=== PATIENT | male | born 1950 ===

== ENCOUNTER 2019-03-23 03:38 | Inpatient (IN) | payer OTHER, MEDICARE ==
[~2019-03-23] VITALS: Ht 177.8 cm; Wt 116.7 kg
[2019-03-23] MEDS ORDERED: AMLO10 PO (04:20)
[2019-03-23] MEDS ORDERED: ATOR10 PO (04:20)
[2019-03-23] MEDS ORDERED: GABA300 PO (04:21)
[2019-03-23] MEDS ORDERED: Hydrocodone-Ap1 EA20 PO (04:21)
[2019-03-23] MEDS ORDERED: LOSA25 PO (04:22)
[2019-03-23] MEDS ORDERED: LIDO700A20 TOP (04:22)
[2019-03-23] MEDS ORDERED: IBUP800 PO (04:22)
[2019-03-23] MEDS ORDERED: DULERA 200 MCG/13 GM INH (04:23)
[2019-03-23] MEDS ORDERED: METF500 PO (04:23)
[2019-03-23] MEDS ORDERED: SERT100 PO (04:24)
[2019-03-23] MEDS ORDERED: ASPI81CH PO (04:24)
[2019-03-23] MEDS ORDERED: STRIVERDI RESPIM4 GM (04:24)
[2019-03-23 04:25] LABS: BASOPHILS ABSOLUTE AUTO 0.02 K/mm3 (0.00-0.23); BASOPHILS PERCENT AUTO 0 % (0-2); EOSINOPHILS ABSOLUTE AUTO 0.01 K/mm3 (0.00-0.68); EOSINOPHILS PERCENT AUTO 0 % (0-6); Hematocrit 34.4 % (37.0-53.0); Hemoglobin 10.9 g/dL (13.5-17.5); IMMATURE GRAN ABSOLUTE AUTO 0.21 K/mm3 (0.00-0.10); IMMATURE GRAN PERCENT AUTO 1 % (0-1); LYMPHOCYTES ABSOLUTE AUTO 0.33 K/mm3 (0.84-5.20); LYMPHOCYTES PERCENT AUTO 2 % (21-46); MONOCYTES ABSOLUTE AUTO 1.45 K/mm3 (0.16-1.47); MONOCYTES PERCENT AUTO 7 % (4-13); Mean Corpuscular HGB 28.2 pg (26.0-34.0); Mean Corpuscular HGB Conc 31.7 g/dL (31.5-36.5); Mean Corpuscular Volume 89 fL (80-100); Mean Platelet Volume 9.2 fL (9.1-12.4); NEUTROPHILS ABSOLUTE AUTO 19.45 K/mm3 (1.96-9.15); NEUTROPHILS PERCENT AUTO 91 % (41-73); Platelet Count 400 K/mm3 (150-400); RDW Coefficient Variation 15.4 % (11.7-14.2); RDW Standard Deviation 50.6 fL (35.1-46.3); Red Blood Cell Count 3.86 M/mm3 (4.30-5.90); White Blood Cell Count 21.47 K/mm3 (4.00-11.30)
[2019-03-23 04:46] LABS: Alanine Aminotransfer (ALT/SGP 15 U/L (12-78); Albumin, Blood 2.3 g/dL (3.4-5.0); Albumin/Globulin Ratio 0.4 (0.8-1.8); Alk Phos 134 U/L (50-136); Anion Gap 8 mmol/L (6-16); Aspartate Aminotrans (AST/SGOT 16 U/L (12-37); Bilirubin, Total 0.8 mg/dL (0.1-1.0); Blood Urea Nitrogen 12 mg/dL (8-24); Bun/Creatinine Ratio 19.8 (12.0-20.0); CO2, Blood 27 mmol/L (21-32); Calcium, Blood 9.1 mg/dL (8.5-10.1); Chloride, Blood 100 mmol/L (98-108); Creatinine, Blood 0.61 mg/dL (0.60-1.20); Globulin, Blood 5.5 g/dL (2.2-4.0); Glomerular Filtration Rate >60 (60-); Glucose, Blood 144 mg/dL (70-99); Potassium, Blood 3.5 mmol/L (3.5-5.5); Sodium, Blood 135 mmol/L (136-145); Total Protein, Blood 7.8 g/dL (6.4-8.2)
[2019-03-23 04:47] LABS: PCO2 Arterial 39.3 mmHg (35-45); PO2 Arterial 79.8 mmHg (80-100); pH Blood Arterial 7.46 (7.35-7.45)
[2019-03-23 05:10] LABS: Source, Urine Clean Catch
[2019-03-23 05:17] LABS: Bilirubin, Urine Neg (Neg); Blood, Urine 3+ (Neg); Glucose Qualitative, Urine Neg (Neg); Ketones, Urine 3+ (Neg); Leukocyte Esterase, Urine 1+ (Neg); Nitrite, Urine Neg (Neg); Protein, Urine 2+ (Neg); Urobilinogen, Urine 2+ (Normal)
[2019-03-23 05:23] LABS: Appearance, Urine Clear (Clear); Color, Urine Amber (P-Yellow)
[2019-03-23 05:24] LABS: Red Blood Cells, Urine 0-2 /hpf (0-2); Squamous Epithelial Cells Few /hpf (Few)
[2019-03-23 05:25] LABS: Bacteria Many /hpf; Hyaline Casts 0-2 /lpf (0-2); Mucus Mod (0-Heavy)
--- NOTE | 2019-03-23 07:34 | NUR ---
Recieved report from Nicolle GARCIA. Patient laying supine in bed with HOB at 30 degrees. He awakens startling with verbal stimuli and is [place]. He is able to communicate his needs. He is on BIPAP 04/23 and 3L bleed in and 25% FiO2 and 94% sats. at bedside. He is able to reposition self in bed and use urinal apprpriately. States normal back pain at 3-10/27 no current intervention requested.
--- NOTE | 2019-03-23 08:00 | NUR ---
Recieved report from Nicolle GARCIA. Patient up to [facility] with assist of PCT. after getting back to bed states chest pain with increased inspirations. She is on RA and sats mid 90%'s. She filiberto any current needs. She is alert and oriented and is able to communicate her needs. Family at bedside. VSS, she wants to continue to rest.
[2019-03-23] MEDS ORDERED: STIOLTO RESPIMAT4 GM INH (10:06)
--- NOTE | 2019-03-23 10:32 | NUR ---
Patient off bipap for awhile and was placed on 2L O2 via HF NC and sats 94-95%. He walked to shower and toleratyed well and started to be SOB and wheeled back to room after he was done. Placed BIPAP back on at original settings and is resting well. He tolerated am meds well with water.
--- NOTE | 2019-03-23 10:38 | NUR ---
Patient denies shower currently. ECHO done. Dr Moya by to see patient and family. Medicated with Totradol for plueretic pain and pain increases with inspiration 7/10 and lives with 7-8/10 back pain, the only stated difference it does not ussually hurt to breath. She is currently resting on left side. VSS
--- NOTE | 2019-03-23 13:07 | NUR ---
Patient requested brake and will be having Rt set up with CPAP. He is currently on RA and sats low 90% and denies any SOB at rest. VSS. He will be starting on cardiac diet. CBG 202 and no coverage r/t NPO.
--- NOTE | 2019-03-23 14:40 | NUR ---
Calling report to medical floor and patient was given Cardiac diet and only tolerated liquids and stated did not like taste of food. He has been on RA and sats low 90%'s. Family remains at beside. No significant changes with patient. He is currently Med no tele.
--- NOTE | 2019-03-23 15:12 | NUR ---
PT ARRIVED TO ROOM VIA W/C APPEARS IN NO ACUTE DISTRESS. DENIES ANY PAIN OR CONCERNS. CALL LIGHT IN HAND, BED IN LOW AND LOCKED POSITION. INSTRUCTED ON FREQUENT ROUNDING AND ORIENTED TO BED CONTROLS AND ROOM.
--- NOTE | 2019-03-23 17:01 | NUR ---
Per admit trigger, I met with pt and spouse to offer information regarding Advanced Directives. Spouse states pt has a completed AD at home. Advised her to bring copy. No concerns presented. Pt is apparently improving. I will remain available.
--- NOTE | 2019-03-23 17:06 | NUR ---
SHIFT SUMMARY TRANSFER FROM ICU THIS AFTERNOON. DX SOB WITH HX OF LUNG CA. CURRENT PACK A DAY SMOKER. COARSE LS X4. ROOM AIR SATS LOW 90'S. [place]. HTN. FAMILY TO VISIT FOR SEVERAL HOURS THIS PM. [facility] STANDBY ASSIST; CALLS APPROPRIATELY.
[2019-03-24 05:07] LABS: BASOPHILS ABSOLUTE AUTO 0.02 K/mm3 (0.00-0.23); BASOPHILS PERCENT AUTO 0 % (0-2); EOSINOPHILS PERCENT AUTO 0 % (0-6); Hematocrit 33.3 % (37.0-53.0); Hemoglobin 10.5 g/dL (13.5-17.5); IMMATURE GRAN ABSOLUTE AUTO 0.25 K/mm3 (0.00-0.10); IMMATURE GRAN PERCENT AUTO 1 % (0-1); LYMPHOCYTES ABSOLUTE AUTO 0.41 K/mm3 (0.84-5.20); LYMPHOCYTES PERCENT AUTO 2 % (21-46); MONOCYTES ABSOLUTE AUTO 0.78 K/mm3 (0.16-1.47); MONOCYTES PERCENT AUTO 4 % (4-13); Mean Corpuscular HGB 27.3 pg (26.0-34.0); Mean Corpuscular HGB Conc 31.5 g/dL (31.5-36.5); Mean Corpuscular Volume 87 fL (80-100); Mean Platelet Volume 9.5 fL (9.1-12.4); NEUTROPHILS ABSOLUTE AUTO 18.86 K/mm3 (1.96-9.15); NEUTROPHILS PERCENT AUTO 93 % (41-73); Platelet Count 441 K/mm3 (150-400); RDW Coefficient Variation 15.2 % (11.7-14.2); RDW Standard Deviation 48.3 fL (35.1-46.3); Red Blood Cell Count 3.84 M/mm3 (4.30-5.90); White Blood Cell Count 20.32 K/mm3 (4.00-11.30)
[2019-03-24 05:29] LABS: Anion Gap 8 mmol/L (6-16); Blood Urea Nitrogen 21 mg/dL (8-24); Bun/Creatinine Ratio 34.9 (12.0-20.0); CO2, Blood 28 mmol/L (21-32); Calcium, Blood 9.1 mg/dL (8.5-10.1); Chloride, Blood 103 mmol/L (98-108); Glomerular Filtration Rate >60 (60-); Glucose, Blood 156 mg/dL (70-99); Potassium, Blood 3.3 mmol/L (3.5-5.5); Sodium, Blood 139 mmol/L (136-145)
--- NOTE | 2019-03-24 06:15 | NUR ---
sHIFT SUMMARY: pT HAS FREQUENT PRODUCTIVE COUGH DURING THE NIGHT. vss. pT DOES NOT TOLERATE CPAP. hE has one at home and was unable to tolerate that one either. Pt sating > 92 on ra. Pt able to get some sleep last pm. Tolerating antibiotics well.
[2019-03-24] MEDS ORDERED: ALBU3IS INH (11:26)
[2019-03-24] MEDS ORDERED: PRED20 PO (11:31)
[2019-03-24] MEDS ORDERED: NICO21TP TOP (11:31)
[2019-03-24] MEDS ORDERED: LEVO750 PO (11:32)
--- NOTE | 2019-03-24 12:58 | NUR ---
PT DISCHARGED TO HOME WITH SPOUSE. PT BELONGINGS AND DISCHARGE INFORMATION WITH PT. PT ALERT AND ORIENTED. PT TAKEN TO EXIT BY WHEELCHAIR. PT AND SPOUSE VERBALIZED UNDERSTANDING OF DISCHARGE MEDICATIONS AND FOLLOW UP INSTRUCTIONS.
== END 2019-03-24 13:00 | disposition home or self-care (01) | DRG 871 ==
LOC: ER 03:38 → MEDS 06:14 → ICUW 06:14 → MEDS 15:10 → ENPENDDIS 03-24 10:49 → MEDS 03-24 13:00
PROVIDERS: Emergency Medicine; Internal Medicine; ADMIT Family Medicine
PROC: 5A09357 Assistance with Respiratory Ventilation, Less than 24 Consecutive Hours, Continuous Positive Airway Pressure (ICD-10-PCS; principal; 2019-03-23)
DX: A41.9 Sepsis, unspecified organism (principal); J18.1 Lobar pneumonia, unspecified organism; J96.01 Acute respiratory failure with hypoxia; J44.1 Chronic obstructive pulmonary disease with (acute) exacerbation; J44.0 Chronic obstructive pulmonary disease with (acute) lower respiratory infection; E87.6 Hypokalemia; D64.9 Anemia, unspecified; F17.210 Nicotine dependence, cigarettes, uncomplicated; I10 Essential (primary) hypertension; E66.9 Obesity, unspecified; G47.33 Obstructive sleep apnea (adult) (pediatric); E11.9 Type 2 diabetes mellitus without complications; E78.00 Pure hypercholesterolemia, unspecified; Z85.51 Personal history of malignant neoplasm of bladder; Z87.442 Personal history of urinary calculi; Z85.118 Personal history of other malignant neoplasm of bronchus and lung; Z68.37 Body mass index [BMI] 37.0-37.9, adult
CPT/HCPCS: 36415; 36600; 71046; 80048; 80053; 81001; 82803; 82947; 83605; 84145; 85025; 87040; 87086; 93005; 93010; 94640; 94644; 94660; 94762; 96365; 96375; 99284-25; J1650; J1815; J2543; J2930

== ENCOUNTER 2025-06-05 10:35 | Emergency (ER) | payer OTHER ==
[~2025-06-05] VITALS: Ht 177.8 cm; Wt 111.1 kg
[~2025-06-05 10:35] MED LIST: ALBU3IS INH; AMLO5 PO; ASPI81CH PO; ATOR10 PO; DULERA 200 MCG/13 GM INH; GABA300 PO; Hydrocodone-Ap1 EA20 PO; IBUP800 PO; LEVO750 PO; LIDO700A20 TOP; LOSA25 PO; METF500 PO; NICO21TP TOP; PRED20 PO; SERT100 PO; STIOLTO RESPIMAT4 GM INH; STRIVERDI RESPIM4 GM
[2025-06-05 12:04] LABS: BASOPHILS ABSOLUTE AUTO 0.04 K/mm3 (0.00-0.23); BASOPHILS PERCENT AUTO 0 % (0-2); EOSINOPHILS ABSOLUTE AUTO 0.01 K/mm3 (0.00-0.68); EOSINOPHILS PERCENT AUTO 0 % (0-6); Hematocrit 31.0 % (37.0-53.0); Hemoglobin 9.9 g/dL (13.5-17.5); IMMATURE GRAN ABSOLUTE AUTO 0.15 K/mm3 (0.00-0.10); IMMATURE GRAN PERCENT AUTO 1 % (0-1); LYMPHOCYTES ABSOLUTE AUTO 1.57 K/mm3 (0.84-5.20); LYMPHOCYTES PERCENT AUTO 12 % (21-46); MONOCYTES ABSOLUTE AUTO 0.89 K/mm3 (0.16-1.47); MONOCYTES PERCENT AUTO 7 % (4-13); Mean Corpuscular HGB Conc 31.9 g/dL (31.5-36.5); Mean Corpuscular Volume 92 fL (80-100); NEUTROPHILS ABSOLUTE AUTO 10.75 K/mm3 (1.96-9.15); NEUTROPHILS PERCENT AUTO 80 % (41-73); NRBC ABSOLUTE 0.00 K/mm3 (0.00-0.02); NRBC Auto 0.0 /100 WBC (0.0-0.2); Platelet Count 275 K/mm3 (150-400); RDW Coefficient Variation 15.4 % (11.7-14.2); RDW Standard Deviation 50.6 fL (35.1-46.3)
[2025-06-05] MEDS ORDERED: NS 1,000 ML IV SCH (12:20)
[2025-06-05 12:29] LABS: Alanine Aminotransfer (ALT/SGP 19.0 U/L (12-78); Albumin, Blood 2.8 g/dL (3.4-5.0); Albumin/Globulin Ratio 0.8 (0.8-1.8); Anion Gap 8.0 mmol/L (3-11); Aspartate Aminotrans (AST/SGOT 19.0 U/L (12-37); Bilirubin, Total 0.4 mg/dL (0.1-1.0); Blood Urea Nitrogen 62.0 mg/dL (8-24); CO2, Blood 26.0 mmol/L (21-32); Calcium, Blood 8.6 mg/dL (8.5-10.1); Chloride, Blood 106.0 mmol/L (98-108); Creatinine, Blood 1.09 mg/dL (0.60-1.20); Globulin, Blood 3.5 g/dL (2.2-4.0); Glucose, Blood 149.0 mg/dL (70-99); Potassium, Blood 4.3 mmol/L (3.5-5.5); Sodium, Blood 136.0 mmol/L (136-145); Total Protein, Blood 6.3 g/dL (6.4-8.2)
[2025-06-05 12:30] LABS: Calcium, Ionized (POC) 1.14 mmol/L (1.10-1.46); Chloride (POC) 104 mmol/L (98-108); Creatinine (POC) 1.3 mg/dL (0.8-1.3); Glucose (ISTAT POC) 168 mg/dL (70-99); Hematocrit (POC) 29.0 % (41.0-53.0); Hemoglobin (POC) 9.9 g/dL (13.5-17.5); Potassium (POC) 4.9 mmol/L (3.5-5.5); Sodium (POC) 137 mmol/L (135-148); Total CO2 (POC) 20 mmol/L (21-32)
[2025-06-05] MEDS ORDERED: THERA-D2000 UNIT PO (15:42)
[2025-06-05] MEDS ORDERED: Ipratropium/Albuterol SulF 2.5-0.5MG/3 ML Amp INH ONE (17:05)
[2025-06-05] MEDS ORDERED: Ondansetron HCl 2 MG / ML 2ML Vial IV PRN (17:30)
[2025-06-05] MEDS ORDERED: FLU VACC TS2025(65UP)/MF59C/PF 45 MCG/0.5 ML SYRINGE IM SCH (17:30)
[2025-06-05] MEDS ORDERED: Ipratropium/Albuterol SulF 2.5-0.5MG/3 ML Amp INH SCH (17:30)
[2025-06-05] MEDS ORDERED: Albuterol 2.5 MG/3 ML VIAL INH PRN (17:30)
[2025-06-05 17:47] LABS: Calcium, Ionized (POC) 1.12 mmol/L (1.10-1.46); Chloride (POC) 103 mmol/L (98-108); Creatinine (POC) 1.3 mg/dL (0.8-1.3); Glucose (ISTAT POC) 131 mg/dL (70-99); Hematocrit (POC) 22.0 % (41.0-53.0); Hemoglobin (POC) 7.5 g/dL (13.5-17.5); Potassium (POC) 4.3 mmol/L (3.5-5.5); Sodium (POC) 139 mmol/L (135-148); Total CO2 (POC) 25 mmol/L (21-32)
[2025-06-05 17:52] LABS: pH Blood Venous 7.31 (7.34-7.37)
[2025-06-05] MEDS ORDERED: NS 1,000 ML IV ONE (17:55)
[2025-06-05] MEDS ORDERED: Insulin Human Lispro 100 Units/ML 3ML Syringe SC SCH (21:00)
[2025-06-05 23:30] VITALS: BP 110/66
[2025-06-15] MEDS ORDERED: ALBU90OI INH (23:32)
== END 2025-06-05 23:50 | disposition short-term general hospital (02) ==
LOC: ER 10:35
PROVIDERS: Nurse Practitioner Acute Care; Physician Assistant
DX: K92.1 Melena (principal); D62 Acute posthemorrhagic anemia; J69.0 Pneumonitis due to inhalation of food and vomit; J96.01 Acute respiratory failure with hypoxia; J44.1 Chronic obstructive pulmonary disease with (acute) exacerbation; R55 Syncope and collapse; R65.10 Systemic inflammatory response syndrome (SIRS) of non-infectious origin without acute organ dysfunction; G47.33 Obstructive sleep apnea (adult) (pediatric); I10 Essential (primary) hypertension; E11.9 Type 2 diabetes mellitus without complications; E78.5 Hyperlipidemia, unspecified; F17.210 Nicotine dependence, cigarettes, uncomplicated; Z79.84 Long term (current) use of oral hypoglycemic drugs; Z79.82 Long term (current) use of aspirin; Z79.899 Other long term (current) drug therapy
CPT/HCPCS: 36430; 70450; 71046; 71260; 74174; 80047; 80053; 82803; 82947; 83690; 84484; 85014; 85025; 85379; 86850; 86900; 86901; 86920; 93005; 93010; 94640; 94664; 96365-59; 96375-59; 99285-25; A9270; J0456; J2919; J7030; J7050; P9016; Q9967

== ENCOUNTER 2025-06-15 14:34 | Inpatient (IN) | payer OTHER ==
[~2025-06-15] VITALS: Ht 177.8 cm; Wt 106.3 kg
[~2025-06-15 14:34] MED LIST changes: +THERA-D2000 UNIT PO
[2025-06-15 15:13] LABS: BASOPHILS ABSOLUTE AUTO 0.01 K/mm3 (0.00-0.23); BASOPHILS PERCENT AUTO 0 % (0-2); EOSINOPHILS ABSOLUTE AUTO 0.14 K/mm3 (0.00-0.68); EOSINOPHILS PERCENT AUTO 2 % (0-6); Hematocrit 27.2 % (37.0-53.0); Hemoglobin 8.5 g/dL (13.5-17.5); IMMATURE GRAN ABSOLUTE AUTO 0.08 K/mm3 (0.00-0.10); IMMATURE GRAN PERCENT AUTO 1 % (0-1); LYMPHOCYTES ABSOLUTE AUTO 0.67 K/mm3 (0.84-5.20); LYMPHOCYTES PERCENT AUTO 9 % (21-46); MONOCYTES ABSOLUTE AUTO 0.58 K/mm3 (0.16-1.47); MONOCYTES PERCENT AUTO 7 % (4-13); Mean Corpuscular HGB Conc 31.3 g/dL (31.5-36.5); Mean Corpuscular Volume 96 fL (80-100); NEUTROPHILS ABSOLUTE AUTO 6.33 K/mm3 (1.96-9.15); NEUTROPHILS PERCENT AUTO 81 % (41-73); NRBC ABSOLUTE 0.00 K/mm3 (0.00-0.02); NRBC Auto 0.0 /100 WBC (0.0-0.2); Platelet Count 168 K/mm3 (150-400); RDW Coefficient Variation 15.3 % (11.7-14.2); RDW Standard Deviation 53.0 fL (35.1-46.3)
[2025-06-15 15:30] LABS: Anion Gap 6.0 mmol/L (3-11); Blood Urea Nitrogen 11.0 mg/dL (8-24); CO2, Blood 38.0 mmol/L (21-32); Calcium, Blood 8.5 mg/dL (8.5-10.1); Chloride, Blood 98.0 mmol/L (98-108); Creatinine, Blood 0.89 mg/dL (0.60-1.20); Glucose, Blood 126.0 mg/dL (70-99); Potassium, Blood 3.9 mmol/L (3.5-5.5); Sodium, Blood 138.0 mmol/L (136-145)
[2025-06-15] MEDS ORDERED: Insulin Human Regular 100 UNIT in NS 100 ML IV SCH (16:30)
[2025-06-15 17:57] LABS: Anti-Xa UFH, PHA Monitoring <0.10 IU/mL; Prothrombin Time Results 12.1 Sec (9.7-11.5)
[2025-06-15] MEDS ORDERED: Heparin Sodium,Porcine/0.5 NS 500 ML IV SCH (18:05)
[2025-06-15] MEDS ORDERED: Heparin Sodium 5000 Units/ML 1ML MDV IV ONE (18:05)
[2025-06-15] MEDS ORDERED: Dose Adjust by Pharmacy XX STA (18:06)
[2025-06-15] MEDS ORDERED: Ipratropium/Albuterol SulF 2.5-0.5MG/3 ML Amp INH SCH (19:50)
[2025-06-15] MEDS ORDERED: Albuterol 2.5 MG/3 ML VIAL INH PRN (19:55)
[2025-06-15] MEDS ORDERED: Ondansetron HCl 2 MG / ML 2ML Vial IV PRN (19:55)
[2025-06-15] MEDS ORDERED: FLU VACC TS2025(65UP)/MF59C/PF 45 MCG/0.5 ML SYRINGE IM SCH (19:55)
[2025-06-15] MEDS ORDERED: Acetaminophen650 M1 PO (23:08)
[2025-06-15] MEDS ORDERED: BISA5EC PO (23:12)
[2025-06-15] MEDS ORDERED: BUDESONIDE0.5 MG/2 M INH (23:13)
[2025-06-15] MEDS ORDERED: GUAI600T33 PO (23:15)
[2025-06-15] MEDS ORDERED: CONSTULOSE10 GM/15 M PO (23:20)
[2025-06-15] MEDS ORDERED: MELA3 PO (23:22)
[2025-06-15] MEDS ORDERED: PROTONIX4010 PO (23:24)
[2025-06-15] MEDS ORDERED: POTCHL20ER PO (23:25)
[2025-06-15] MEDS ORDERED: SENN187 PO (23:26)
[2025-06-15] MEDS ORDERED: TORSE20 PO (23:29)
[2025-06-15] MEDS ORDERED: ALBU2.5V5 INH (23:30)
[2025-06-15] MEDS ORDERED: ALBU90OI INH ×2 (23:32→23:36)
[2025-06-15] MEDS ORDERED: COMBIVENT RESPIM4 G1 INH (23:45)
[2025-06-15 23:55] VITALS: BP 141/64
[2025-06-16 01:46] LABS: BASOPHILS ABSOLUTE AUTO 0.01 K/mm3 (0.00-0.23); BASOPHILS PERCENT AUTO 0 % (0-2); EOSINOPHILS ABSOLUTE AUTO 0.10 K/mm3 (0.00-0.68); EOSINOPHILS PERCENT AUTO 2 % (0-6); Hematocrit 27.4 % (37.0-53.0); Hemoglobin 8.5 g/dL (13.5-17.5); IMMATURE GRAN ABSOLUTE AUTO 0.08 K/mm3 (0.00-0.10); IMMATURE GRAN PERCENT AUTO 1 % (0-1); LYMPHOCYTES ABSOLUTE AUTO 0.44 K/mm3 (0.84-5.20); LYMPHOCYTES PERCENT AUTO 7 % (21-46); MONOCYTES ABSOLUTE AUTO 0.35 K/mm3 (0.16-1.47); MONOCYTES PERCENT AUTO 5 % (4-13); Mean Corpuscular HGB Conc 31.0 g/dL (31.5-36.5); Mean Corpuscular Volume 98 fL (80-100); NEUTROPHILS ABSOLUTE AUTO 5.57 K/mm3 (1.96-9.15); NEUTROPHILS PERCENT AUTO 85 % (41-73); NRBC ABSOLUTE 0.00 K/mm3 (0.00-0.02); NRBC Auto 0.0 /100 WBC (0.0-0.2); Platelet Count 153 K/mm3 (150-400); RDW Coefficient Variation 15.2 % (11.7-14.2); RDW Standard Deviation 53.9 fL (35.1-46.3)
[2025-06-16 02:00] LABS: Alanine Aminotransfer (ALT/SGP 17.0 U/L (12-78); Albumin, Blood 2.2 g/dL (3.4-5.0); Albumin/Globulin Ratio 0.6 (0.8-1.8); Anion Gap 6.0 mmol/L (3-11); Aspartate Aminotrans (AST/SGOT 14.0 U/L (12-37); Bilirubin, Total 0.6 mg/dL (0.1-1.0); Blood Urea Nitrogen 10.0 mg/dL (8-24); CO2, Blood 36.0 mmol/L (21-32); Calcium, Blood 8.5 mg/dL (8.5-10.1); Chloride, Blood 100.0 mmol/L (98-108); Creatinine, Blood 0.85 mg/dL (0.60-1.20); Globulin, Blood 3.5 g/dL (2.2-4.0); Glucose, Blood 119.0 mg/dL (70-99); Magnesium, Blood 2.1 mg/dL (1.6-2.4); Potassium, Blood 3.8 mmol/L (3.5-5.5); Sodium, Blood 138.0 mmol/L (136-145); Total Protein, Blood 5.7 g/dL (6.4-8.2)
[2025-06-16] MEDS ORDERED: Clarify Drug Order XX ONE (02:40)
[2025-06-16 03:07] VITALS: BP 152/81
--- NOTE | 2025-06-16 06:11 | NUR ---
SHIFT SUMMARY: PT A&OX4 CALM AND COOPERATIVE. PT IS [place]. VSS ON 3L NC. WAS TOLD IN REPORT THAT PT WEARS 2-4L NC AT BASELINE BUT PT DENIES WEARING OXYGEN AT HOME. HEPARIN INFUSING AT 18 U/KG/HR. PT REMAINED BEDREST D/T O2 DEMANDS. URINAL WITHIN REACH. PT TOLERATING REGULAR DIET. RT TO SET UP CPAP AT BEDSIDE. PALLIATIVE CARE CONSULT. BED IS LOW AND LOCKED. CALL LIGHT WITHIN REACH. CONTINUE WITH CURRENT PLAN OF CARE.
[2025-06-16 07:30] VITALS: BP 123/77
[2025-06-16] MEDS ORDERED: Dose Adjust by Pharmacy XX STA ×2 (10:13→16:23)
--- NOTE | 2025-06-16 10:33 | NUR ---
RN NOTE Mr Nguyen is tired, dozing on and off, easily arousable. Up in chair after seeing Physical Therapist this morning. He denies having pain. Some shortness of breath, sats in the 90s on 2L oxygen nc. He has heparin drip infusing at 18u/kg/hr.
[2025-06-16 11:31] VITALS: BP 127/64
--- NOTE | 2025-06-16 14:36 | NUR ---
PT IS AGREEABLE TO HOME WITH HOSPICE. JOSE ANTONIO ALSO ON BOARD. [facility] TO ADMIT TOMORROW.
[2025-06-16 15:09] VITALS: BP 129/71
--- NOTE | 2025-06-16 15:12 | NUR ---
Shift Report Mr Nguyen is orientatedx4. [place]. SOB on exertion on 1L nc oxygen, continuous pulse ox 93%, has been staying in the low 90s. He denies pain. On heparin gtt at 18u/kg/hr. On telemetry SR, BBB, some PACs/PVCs. no calls from agent telegrapher. Josie (), Mr Nguyen and Paliative Care RN had meeting today and the plan is for home with hospice care tomorrow. Verbal order from Dr Hernandez to transfer in house to Medical Unit. Per break RN pt had non-bloody looking BM today. Mr Nguyen has been sleepy most of the day, easily arousable.
--- NOTE | 2025-06-16 17:05 | NUR ---
Report given to Sonja GARCIA on medical floor.
--- NOTE | 2025-06-16 18:22 | NUR ---
Mr Nguyen was transfered via w/c to Medical Unit at ~1745hrs. was telephoned and notified of room change.
--- NOTE | 2025-06-16 19:12 | NUR ---
RECEIVED REPORT FROM YANELIS AND ASSUMED CARE AT 1750. PATIENT ALERT AND ORIENTED X4. AMBULATED FROM W/C TO BED AND DENIED PAIN. PATIENT ORIENTED TO ROOM AND CALL LIGHT. CALL LIGHT PLACED WITHIN REACH.
[2025-06-16 19:20] VITALS: BP 104/65
[2025-06-16] MEDS ORDERED: NS 1,000 ML BAG IR PRN (20:05)
[2025-06-16] MEDS ORDERED: NS 250 ML IV SCH (20:15)
[2025-06-16 23:50] VITALS: BP 133/67
[2025-06-17 02:52] VITALS: BP 119/67
--- NOTE | 2025-06-17 03:25 | NUR ---
SHIFT SUMMARY: PT AOX4. 1PA WITH FWW. TELEMETRY MONITORING, NSR 80s WITH BBB. DENIES PAIN. CURRENTLY ON 1L O2 VIA NC. CALL LIGHT IS WITHIN REACH. BED IS LOW AND LOCKED.
[2025-06-17 05:33] LABS: Hematocrit 26.3 % (37.0-53.0); Hemoglobin 8.0 g/dL (13.5-17.5); Platelet Count 184 K/mm3 (150-400)
[2025-06-17 07:50] VITALS: BP 139/53
--- NOTE | 2025-06-17 13:01 | NUR ---
DISCHARGE NOTE PATIENT DISCHARGE TO HOME WITH HOSPICE. PRINTED AND REVIEWED DISCHARGE INSTRUCTIONS WITH PATIENT. FAXED MED LIST TO [facility]. D/C'D IV, PATIENT D/C'D AT RA AT 89%-90%. NO ACUTE CHANGE. BELONGINGS RETURNED TO PATIENT. PATIENT TRANSPORTED OUT OF ROOM VIA WHEELCHAIR BY JOSE CLIFFORD.
== END 2025-06-17 11:08 | disposition hospice, home (50) | DRG 175 ==
LOC: ER 14:34 → ERHOLD 18:03 → MEDS 18:03 → PCU 18:03 → MEDS 06-16 17:35
PROVIDERS: Nurse Practitioner Acute Care; Student in an Organized Health Care Education/Training Program; ADMIT Student in an Organized Health Care Education/Training Program
DX: I26.99 Other pulmonary embolism without acute cor pulmonale (principal); J96.21 Acute and chronic respiratory failure with hypoxia; K26.4 Chronic or unspecified duodenal ulcer with hemorrhage; I24.89 Other forms of acute ischemic heart disease; J44.1 Chronic obstructive pulmonary disease with (acute) exacerbation; C34.11 Malignant neoplasm of upper lobe, right bronchus or lung; M84.58XA Pathological fracture in neoplastic disease, other specified site, initial encounter for fracture; I82.411 Acute embolism and thrombosis of right femoral vein; I10 Essential (primary) hypertension; Z51.5 Encounter for palliative care; Z66 Do not resuscitate; E11.9 Type 2 diabetes mellitus without complications; G47.33 Obstructive sleep apnea (adult) (pediatric); E78.5 Hyperlipidemia, unspecified; F17.210 Nicotine dependence, cigarettes, uncomplicated; F32.A Depression, unspecified; F41.9 Anxiety disorder, unspecified; I45.10 Unspecified right bundle-branch block; Z23 Encounter for immunization; Z79.82 Long term (current) use of aspirin; Z99.89 Dependence on other enabling machines and devices; Z99.81 Dependence on supplemental oxygen; Z87.19 Personal history of other diseases of the digestive system; Z79.899 Other long term (current) drug therapy; Z79.84 Long term (current) use of oral hypoglycemic drugs; Z79.51 Long term (current) use of inhaled steroids; Z87.442 Personal history of urinary calculi; Z85.51 Personal history of malignant neoplasm of bladder; Z87.01 Personal history of pneumonia (recurrent)
CPT/HCPCS: 36415; 71046; 71260; 80048; 80053; 83735; 83880; 84484; 85014; 85018; 85025; 85049; 85379; 85520; 85610; 85730; 93005; 93010; 93970; 94640; 94664; 94762; 97116; 97161; 97165; 97530; 99285-25; A9270; J0456; J1644; J1815; J2919; J7050; Q9967

== ENCOUNTER 2025-06-21 07:11 | Observation (INO) | payer OTHER ==
[~2025-06-21] VITALS: Ht 177.8 cm; Wt 107.2 kg
[~2025-06-21 07:11] MED LIST changes: +ALBU2.5V5 INH; +ALBU90OI INH; +Acetaminophen650 M1 PO; +BISA5EC PO; +BUDESONIDE0.5 MG/2 M INH; +COMBIVENT RESPIM4 G1 INH; +CONSTULOSE10 GM/15 M PO; +GUAI600T33 PO; +MELA3 PO; +POTCHL20ER PO; +PROTONIX4010 PO; +SENN187 PO; +TORSE20 PO
[2025-06-21] MEDS ORDERED: Ipratropium/Albuterol SulF 2.5-0.5MG/3 ML Amp INH ONE ×2 (08:20)
[2025-06-21] MEDS ORDERED: Ondansetron 4 MG SoluTab SL ONE (08:20)
[2025-06-21] MEDS ORDERED: Morphine Sulfate 20 MG/1ML 1 ML Oral Syringe SL PRN (10:35)
[2025-06-21] MEDS ORDERED: Atropine Sulfate 1% Opth Soln 2ML BTL SL PRN (10:35)
[2025-06-21] MEDS ORDERED: FLU VACC TS2025(65UP)/MF59C/PF 45 MCG/0.5 ML SYRINGE IM SCH (10:40)
[2025-06-21 11:06] VITALS: BP 90/48
[2025-06-21] MEDS ORDERED: MORP20L (15:05)
[2025-06-21] MEDS ORDERED: Ativan1 MG (15:06)
--- NOTE | 2025-06-21 16:39 | NUR ---
rounded on patient. discussed care that would be provided. theraputic conversation with patients spouse.
--- NOTE | 2025-06-21 17:35 | NUR ---
CALLED TO NOTIFY JESSE GARY OF CHANGE IN PT CONDITION. HIS BREATHING IS MUCH SLOWER AND HE IS HAVING APNIC EPISODES THAT LAST 15-20 SECONDS. SON ABDIRAHMAN TO NOTIFY JOSE ANTONIO I COULD NOT GET THROUGH TO HER
--- NOTE | 2025-06-21 19:28 | NUR ---
TIME OF PRONOUNCED BY THIS RN AND LOU POLLARD AT 1745. ENTERED ROOM AT 1747 AFTER SHE WAS NOTIFIED BY HER SON (SEE PREVIOUS NOTE). DR. FRANZ NOTIFIED AND CHARGE NURSE CASSIDY COMPLETED FINAL DISCHARGE AND REMOVED [place]FFER AFTER FAMILY LEFT ROOM.
== END 2025-06-21 17:45 ==
LOC: ER 07:11 → MEDS 07:12
PROVIDERS: ADMIT Student in an Organized Health Care Education/Training Program
DX: K92.0 Hematemesis (principal); C78.01 Secondary malignant neoplasm of right lung; C67.9 Malignant neoplasm of bladder, unspecified; E11.9 Type 2 diabetes mellitus without complications; E78.5 Hyperlipidemia, unspecified; F17.210 Nicotine dependence, cigarettes, uncomplicated; G47.33 Obstructive sleep apnea (adult) (pediatric); I26.99 Other pulmonary embolism without acute cor pulmonale; I10 Essential (primary) hypertension; J44.1 Chronic obstructive pulmonary disease with (acute) exacerbation; J96.21 Acute and chronic respiratory failure with hypoxia; Z79.51 Long term (current) use of inhaled steroids; Z79.899 Other long term (current) drug therapy; Z87.11 Personal history of peptic ulcer disease
CPT/HCPCS: 99285-25; A9270; G0378